=== PATIENT | male | born 1990 | race African-American/Black ===

== ENCOUNTER 2020-11-10 12:23 | Outpatient (CLI) | payer BC, SELFPAY ==
--- NOTE | ~2020-11-10 | MR_ITS ---
EXAMINATION: MR cervical spine wo con DATE: 11/10/2020 13:38 INDICATION: Neck pain. TECHNIQUE: Magnetic resonance imaging (MRI) of the cervical spine was performed without intravenous c ontrast. Sequences included sagittal T2-weighted FSE, sagittal STIR FSE, sagittal T1-weighted FSE, ax ial MERGE, and axial T2-weighted FSE. COMPARISON: Cervical spine radiograph 11/02/2020 FINDINGS: There is kyphosis of cervical spine. Vertebral body heights and intervertebral disc heights are normal. The spinal cord signal intensity is normal. The following disc levels are specifically d iscussed: C2-C3: The disc does not extend beyond the endplate margin. There is no uncovertebral joint osteoarth ritis. There is mild bilateral facet joint osteoarthritis. There is no neural foraminal stenosis. The re is no central canal stenosis. C3-C4: There is a left central protrusion. There is no uncovertebral joint osteoarthritis. There is n o facet joint osteoarthritis. There is no neural foraminal stenosis. There is mild central canal sten osis. C4-C5: There is a right central protrusion. There is no uncovertebral joint osteoarthritis. There is no facet joint osteoarthritis. There is no neural foraminal stenosis. There is mild central canal charley nosis with ventral indentation of the spinal cord. C5-C6: The disc is bulging. There is moderate right and mild left uncovertebral joint osteoarthritis. There is no facet joint osteoarthritis. There is moderate and mild left neural foraminal stenosis. T here is mild central canal stenosis with ventral indentation of the spinal cord. C6-C7: The disc is bulging. There is moderate right and mild left uncovertebral joint osteoarthritis. There is no facet joint osteoarthritis. There is moderate right and mild left neural foraminal steno sis. There is mild central canal stenosis with ventral indentation of the spinal cord. C7-T1: The disc does not extend beyond the endplate margin. There is no uncovertebral joint osteoarth ritis. There is mild bilateral facet joint osteoarthritis. There is mild right neural foraminal steno sis. There is no central canal stenosis. IMPRESSION: 1. Moderate cervical spondylosis. Reviewed, dictated and finalized at location A.
== END 2020-11-10 12:24 | disposition home or self-care (01) ==
PROVIDERS: Visit Provider Nurse Practitioner Family
DX: M47.23 Other spondylosis with radiculopathy, cervicothoracic region (principal); M48.03 Spinal stenosis, cervicothoracic region
CPT/HCPCS: 72141

== ENCOUNTER 2021-02-08 17:21 | Emergency (ER) | payer BC, SELFPAY ==
--- NOTE | ~2021-02-08 | XR_ITS ---
EXAMINATION: XR shoulder RT min 2V INDICATION: Paresthesia of the right arm TECHNIQUE: Four views of the right shoulder are submitted. COMPARISON: None FINDINGS: Normal alignment. No fracture. Glenohumeral and acromioclavicular joint spaces are normal. Soft tissues are unremarkable. IMPRESSION: 1. No acute osseous abnormality. Reviewed, dictated and finalized at location A.
[2021-02-08 17:30] VITALS: BP 151/103; PULSE 73; RESP 18; TEMP 37.1; O2SAT 99
--- NOTE | 2021-02-08 17:35 | ECG_ITS ---
Measurements Intervals [place] Rate: 67 P: 48 ID: [id number] QRS: -29 QRSD: 109 T: 23 QT: 374 QTc: 396 Interpretive Statements SINUS RHYTHM DELAYED PRECORDIAL R/S TRANSITION BORDERLINE ECG Electronically Signed On 02-08-2021 20:21:16 CDT by Armando Giraldo D.O.
[2021-02-08 19:23] VITALS: BP 153/116; PULSE 72; RESP 18; TEMP 36.8; O2SAT 100
--- NOTE | 2021-02-08 19:45 | ED.GENADULT ---
HPI - General Adult General Chief complaint: Extremity Injury, Upper Stated complaint: right shoulder pain Time Seen by Provider: 02/08/21 19:01 Source: patient and RN notes reviewed Mode of arrival: ambulatory Limitations: no limitations History of Present Illness HPI narrative: Patient is a 30-year-old male who presents to emergency department for evaluation of right shoulder pain that is been present since August he has seen orthopedics for this as well as primary care notes that he has had MRI of the shoulder and spine and is scheduled to see a new specialist in March on arrival he denies any new injury or trauma or other complaints pain is worse with activity and movement of the shoulder and isolated to the shoulder joint on the right side only Related Data Allergies Allergy/AdvReac Type Severity Reaction Status Date / Time No Known Allergies Allergy Verified 02/08/21 19:29 Review of Systems Review of Systems: All systems reviewed & are unremarkable except as noted in HPI and below PMFSH Past Medical History Medical History Cervical pain (neck) Cervical radiculopathy Chronic headaches Right arm pain Vision changes Family History Family History (Updated 11/02/20 @ 15:56 by Roxann Matamoros, RT(R)) Other Asthma Cerebrovascular accident Hypertension Social History Social History Smoking status: Never smoker Alcohol intake: never Substance use: current Substance use type: marijuana Gender identity (if verbalized by the patient): Male Exam Narrative: GENERAL: Well-appearing, well-nourished, and in no acute distress. HEAD: Normocephalic, atraumatic. EYES: PERRLA and EOMI. ENT: Nares clear, no rhinorrhea or epistaxis. Mucous membranes moist. NECK: Supple. No adenopathy or masses. CHEST: Clear to auscultation. No respiratory distress. No wheezes rales or rhonchi HEART: Regular rate and rhythm. No murmur heard. EXTREMITIES: Normal range of motion. No edema. Tenderness of the right shoulder joint no deformity. No midline cervical or thoracic tenderness SKIN: Warm, dry, no rash. NEURO: No focal deficits. Alert and oriented x3. Neurovascularly intact. Capillary refill less than 2 seconds PSYCH: Normal mood and affect. Course Course Emergency Course: Patient in the room nondistressed aware of case findings treatment plan and diagnosis agreeing to follow-up as instructed or to return if symptoms worsen or concerns Vital Signs Vital signs: Vital Signs Temperature 98.7 F 02/08/21 17:30 Pulse Rate 73 02/08/21 17:30 Respiratory Rate 18 02/08/21 17:30 Blood Pressure 151/103 H 02/08/21 17:30 Pulse Oximetry 99 02/08/21 17:30 Temperature 98.3 F 02/08/21 19:23 Pulse Rate 72 02/08/21 19:23 Respiratory Rate 18 02/08/21 19:23 Blood Pressure 153/116 H 02/08/21 19:23 Pulse Oximetry 100 02/08/21 19:23 Medical Decision Making MDM Narrative Medical decision making narrative: Patients injury or pain is consistent with musculoskeletal etiology. No signs of neurological or vascular compromise on exam. Compartments and tisues are soft without signs of compartment syndrome. Pain is felt appropriate for further evaluation on an outpatient basis. Vital Signs Vital Signs: Vital Signs Temperature 98.7 F 02/08/21 17:30 Pulse Rate 73 02/08/21 17:30 Respiratory Rate 18 02/08/21 17:30 Blood Pressure 151/103 H 02/08/21 17:30 Pulse Oximetry 99 02/08/21 17:30 Temperature 98.3 F 02/08/21 19:23 Pulse Rate 72 02/08/21 19:23 Respiratory Rate 18 02/08/21 19:23 Blood Pressure 153/116 H 02/08/21 19:23 Pulse Oximetry 100 02/08/21 19:23 Imaging Data Radiologist's impression: ITS Impressions Shoulder X-Ray 02/08/21 17:54 IMPRESSION: 1. No acute osseous abnormality. Discharge Plan Discharge Clinical Impress
[2021-02-08] MEDS: KETOROLAC (*BKC) 60 MG/2 ML VIAL IM (21:19)
[2021-02-08 21:45] VITALS: BP 167/116; PULSE 68; RESP 16; O2SAT 100
== END 2021-02-08 21:46 | disposition home or self-care (01) ==
PROVIDERS: Emergency Provider Emergency Medicine
DX: M25.511 Pain in right shoulder (principal); R94.31 Abnormal electrocardiogram [ECG] [EKG]
CPT/HCPCS: 73030; 93005; 96372; 99283; J1885

== ENCOUNTER 2022-02-07 16:57 | Emergency (ER) | payer BC, SELFPAY ==
--- NOTE | ~2022-02-07 | XR_ITS ---
EXAMINATION: XR chest 1V portable INDICATION: Shortness of breath and fever TECHNIQUE: Portable AP chest at 1721 hours COMPARISON: None available FINDINGS: The heart size is upper limits of normal for technique. There are minimal opacities of the mid and lower lung zones. No pleural effusion or pneumothorax. IMPRESSION: 1. Minimal opacities of the mid and lower lung zones, consistent with atelectasis versus pneumonia. Reviewed, dictated and finalized at location A. IMPRESSION: 1. Minimal opacities of the mid and lower lung zones, consistent with atelectas is versus pneumonia.
--- NOTE | 2022-02-07 17:01 | ECG_ITS ---
Measurements Intervals [place] Rate: 71 P: 61 SC: 182 QRS: -12 QRSD: 101 T: 21 QT: 396 QTc: 431 Interpretive Statements SINUS RHYTHM POSSIBLE LEFT ATRIAL ENLARGEMENT BORDERLINE R WAVE PROGRESSION, ANTERIOR LEADS BASELINE ARTIFACT- I, II, III, AVR, AVL, AVF, V1, V3-V4 BORDERLINE ECG COMPARED TO ECG 02/08/2021 17:41:22 NO SIGNIFICANT CHANGES Electronically Signed On 02-07-2022 21:49:34 CDT by Armando Giraldo D.O.
[2022-02-07 17:05] VITALS: BP 159/107; PULSE 98; RESP 15; TEMP 37.1; O2SAT 97
[2022-02-07 17:10] VITALS: PULSE 73
[2022-02-07 17:21] LABS: Basophils Percent Auto 0.4 % (0.2-1.2); Eosinophils Absolute Auto 0.1 K/mm3 (0-0.3); Eosinophils Percent Auto 1.2 % (0-4.4); Hematocrit 45.3 % (42.0-52.0); Hemoglobin 14.5 g/dL (14.0-18.0); Immature Granulocyte Absolute 0.02 K/mm3 (0.00-0.031); Immature Granulocyte Percent A 0.3 % (0-0.5); Lymphocytes Absolute Auto 2.18 K/mm3 (0.9-3.2); Mean Corpuscular Hemoglobin 28.5 pg (26-34); Mean Platelet Volume 10.8 fl (7.4-10.4); Monocytes Absolute Auto 0.5 K/mm3 (0.1-0.6); Monocytes Percent Auto 6.2 % (2.6-8.5); Neutrophils Percent Auto 63.9 % (45.5-73.1); Platelet Count Result 200 k/mm3 (150-375); Red Blood Count 5.09 M/mm3 (4.6-6.20); Red Cell Distribution Width 13.2 % (11.5-14.5); White Blood Count 7.8 K/mm3 (4.5-10.0)
[2022-02-07] MEDS: SODIUM CHLORIDE 0.9% IV 1,000 ML 999 ML IV CONT (17:33)
[2022-02-07] MEDS: KETOROLAC 30 MG/ML VIAL (*BKC) IV PUSH (17:33)
[2022-02-07 17:39] LABS: Alanine Aminotransferase 24 U/L (6-50); Albumin Level 4.1 g/dL (3.5-5.1); Alkaline Phosphatase 72 U/L (38-126); Anion Gap 6 mmol/L (8-16); Aspartate Amino Transferase 33 U/L (17-59); Bilirubin,Total 1.1 mg/dL (0.2-1.3); Blood Urea Nitrogen 16 mg/dL (9-20); Calcium 8.9 mg/dL (8.4-10.2); Carbon Dioxide 33 mmol/L (22-30); Chloride 101 mmol/L (98-107); Estimated CRCL calculation 99 ml/min; Estimated Glomerular Filt Rate > 60; Glucose 90 mg/dL (65-110); Potassium 3.2 mmol/L (3.4-5.0); Sodium 140 mmol/L (137-145)
[2022-02-07 17:59] LABS: Influenza A QL RT-PCR Negative (Negative); Influenza B QL RT-PCR Negative (Negative); SARS-CoV-2 RNA PCR Negative
--- NOTE | 2022-02-07 18:07 | ED.GENADULT ---
HPI - General Adult General Chief complaint: Shortness of Breath/Dyspnea Stated complaint: fever, nausea, body aches, SOB Time Seen by Provider: 02/07/22 17:09 History of Present Illness HPI narrative: Patient is a 31-year-old male who presents ER with concerns for illness. Reports he has been having some congestion with body aches. He reports low-grade fever and some nausea today. He also reports feeling dizzy when going from sitting to standing. No known sick contacts. No chest pain or chest pressure. Reports he feels dehydrated. Related Data Allergies Allergy/AdvReac Type Severity Reaction Status Date / Time No Known Allergies Allergy Verified 02/08/21 19:29 Review of Systems Review of Systems: All systems reviewed & are unremarkable except as noted in HPI and below Constitutional: Constitutional: Denies chills, Reports fatigue and Reports fever(s) ENT: Reports nasal congestion and Reports sore throat Cardiovascular: Cardiovascular: Denies chest pain, Denies rapid heart rate and Denies radiating jaw, neck or arm pain Respiratory: Respiratory: Denies cough, Reports dyspnea and Denies wheezing Gastrointestinal: Gastrointestinal: Denies abdominal pain, Denies nausea and Denies vomiting Musculoskeletal: Musculoskeletal: Reports myalgias, Denies arthralgias and Denies joint swelling PMFSH Past Medical History Medical History (Updated 02/07/22 @ 18:14 by Alfonso Bloom MD) Cervical pain (neck) Cervical radiculopathy Chronic headaches Right arm pain Vision changes Surgical History Surgical History (Updated 02/07/22 @ 18:09 by Alfonso Bloom MD) No pertinent past surgical history Family History Family History (Updated 11/02/20 @ 15:56 by Roxann Matamoros, RT(R)) Other Asthma Cerebrovascular accident Hypertension Social History Social History Smoking status: Never smoker Alcohol intake: never Substance use: current Substance use type: marijuana Gender identity (if verbalized by the patient): Male Exam Narrative: GENERAL: Well-appearing, well-nourished, and in no acute distress. HEAD: Normocephalic, atraumatic. ENT: Mucous membranes moist. Mild pharyngeal erythema with without tonsillar hypertrophy or exudate. Uvula midline nonedematous. Neck: Supple. CHEST: Clear to auscultation. No respiratory distress. HEART: Regular rate and rhythm. Normal peripheral pulses. EXTREMITIES: Normal range of motion. No edema. SKIN: Warm, dry, no rash. NEURO: Alert and oriented x3. PSYCH: Normal mood and affect. Course Course Emergency Course: Patient resting comfortably. Hydrated. Given Toradol. Informed of results. Feel patient has viral syndrome and recommend supportive care. Vital Signs Vital signs: Vital Signs Temperature 98.7 F 02/07/22 17:05 Pulse Rate 98 02/07/22 17:05 Respiratory Rate 15 02/07/22 17:05 Blood Pressure 159/107 H 02/07/22 17:05 Pulse Oximetry 97 02/07/22 17:05 Temperature 98.7 F 02/07/22 17:05 Pulse Rate 73 02/07/22 17:10 Respiratory Rate 15 02/07/22 17:05 Blood Pressure 159/107 H 02/07/22 17:05 Pulse Oximetry 97 02/07/22 17:05 Oxygen Delivery Room Air 02/07/22 17:10 Medical Decision Making Vital Signs Vital Signs: Vital Signs Temperature 98.7 F 02/07/22 17:05 Pulse Rate 98 02/07/22 17:05 Respiratory Rate 15 02/07/22 17:05 Blood Pressure 159/107 H 02/07/22 17:05 Pulse Oximetry 97 02/07/22 17:05 Temperature 98.7 F 02/07/22 17:05 Pulse Rate 73 02/07/22 17:10 Respiratory Rate 15 02/07/22 17:05 Blood Pressure 159/107 H 02/07/22 17:05 Pulse Oximetry 97 02/07/22 17:05 Oxygen Delivery Room Air 02/07/22 17:10 Lab Data Result diagrams: 02/07/22 17:14 02/07/22 17:14 Labs: Lab Results 02/07/22 02/07/22 02/07/22 Range/Units 17:14 17:14 17:14 WBC 7.8 (4.5-10.0) K
== END 2022-02-07 18:45 | disposition home or self-care (01) ==
PROVIDERS: Emergency Provider Emergency Medicine
DX: B34.9 Viral infection, unspecified (principal); Z20.822 Contact with and (suspected) exposure to COVID-19; R91.8 Other nonspecific abnormal finding of lung field; R94.31 Abnormal electrocardiogram [ECG] [EKG]
CPT/HCPCS: 36415; 71045; 80053; 85025; 87502; 93005; 96361; 96374; 99284; C9803; J1885; J7030; U0003; U0005

== ENCOUNTER 2022-04-16 21:25 | Emergency (ER) | payer BC, SELFPAY ==
--- NOTE | ~2022-04-16 | XR_ITS ---
EXAMINATION: XR chest 2V DATE: 04/16/2022 22:17 INDICATION: Dizziness, chills, body aches and weakness TECHNIQUE: frontal and lateral views of the chest were obtained. COMPARISON: Chest radiograph dated 02/07/22 FINDINGS: No focal pneumonia, edema or effusion. No acute osseous abnormality. The cardiomediastinal silhouette is normal. Visualized bones and soft tissues are unremarkable. Shallow inspiration. IMPRESSION: 1. No acute cardiopulmonary disease. Reviewed, dictated and finalized at location A. [employer]
[2022-04-16 21:27] VITALS: BP 160/110; PULSE 67; RESP 18; TEMP 36.4; O2SAT 100
--- NOTE | 2022-04-16 21:35 | ECG_ITS ---
Measurements Intervals [place] Rate: 61 P: 61 NE: 196 QRS: -22 QRSD: 105 T: 29 QT: 399 QTc: 403 Interpretive Statements SINUS RHYTHM WITH SINUS ARRHYTHMIA POSSIBLE LEFT ATRIAL ENLARGEMENT [-0.1mV P WAVE IN V1/V2] BORDERLINE LEFT AXIS DEVIATION [QRS AXIS < -20] COMPARED TO ECG 02/07/2022 17:10:11 SINUS ARRHYTHMIA NOW PRESENT Electronically Signed On 04-17-2022 11:16:34 RELAY TESTER by Naye De Los Santos M.D.
--- NOTE | 2022-04-16 21:58 | ED.URI ---
HPI - URI/Sore Throat General Chief Complaint: Upper Respiratory Infection Stated Complaint: dizziness Time Seen by Provider: 04/16/22 21:35 Source: patient Mode of arrival: ambulatory Limitations: no limitations History of Present Illness HPI Narrative: This is a 31-year-old male that presents to the emergency department due to feeling unwell over the last couple of days. Reports chills, body aches, lightheadedness, dry cough, nausea, dizziness. Reports his blood pressure has been a little elevated. Reports he has been taking his antihypertensive as prescribed. Denies fever, chest pain, shortness of breath, or abdominal pain. Related Data Allergies Allergy/AdvReac Type Severity Reaction Status Date / Time No Known Allergies Allergy Verified 04/16/22 21:30 Review of Systems Review of Systems: CONSTITUTIONAL: Reports chills. Denies fever EYES: Denies visual changes ENT: Reports rhinorrhea, congestion. Denies sore throat, or otalgia. CARDIOVASCULAR: Denies chest pain, or edema. RESPIRATORY: Reports cough. Denies dyspnea. GASTROINTESTINAL: Denies abdominal pain, nausea, vomiting NEUROLOGIC: Denies numbness, or weakness. All systems reviewed & are unremarkable except as noted in HPI and below PMFSH Past Medical History Medical History (Updated 04/17/22 @ 01:31 by MOLINA Alcantara-C) Cervical pain (neck) Cervical radiculopathy Chronic headaches Right arm pain Vision changes Surgical History Surgical History (Updated 02/07/22 @ 18:09 by Alfonso Bloom MD) No pertinent past surgical history Family History Family History (Updated 11/02/20 @ 15:56 by Roxann Matamoros, RT(R)) Other Asthma Cerebrovascular accident Hypertension Social History Social History Smoking status: Never smoker Alcohol intake: never Substance use: current Substance use type: marijuana Gender identity (if verbalized by the patient): Male Exam Narrative: GENERAL: Well-appearing, well-nourished, and in no acute distress. HEAD: Normocephalic, atraumatic. EYES: PERRLA and EOMI. ENT: Nares clear, no rhinorrhea or epistaxis. Mucous membranes moist. Oropharynx without tonsillar hypertrophy exudate or other lesions. Bilateral TMs pearly aragon non-bulging NECK: Supple. No adenopathy or masses. CHEST: Clear to auscultation. No respiratory distress. No wheezes rales or rhonchi HEART: Regular rate and rhythm. No murmur heard. Normal peripheral pulses. EXTREMITIES: Normal range of motion. No edema. SKIN: Warm, dry, no rash. NEURO: No focal deficits. Alert and oriented x3. Cranial nerves II through XII grossly intact PSYCH: Normal mood and affect Course Vital Signs Vital signs: Vital Signs Temperature 97.6 F 04/16/22 21: Pulse Rate 67 04/16/22 21: Respiratory Rate 18 04/16/22 21:27 Blood Pressure 160/110 H 04/16/22 21: Pulse Oximetry 100 04/16/22 21:27 Oxygen Delivery Room Air 04/16/22 21:27 Temperature 97.6 F 04/16/22 21:27 Pulse Rate 67 04/16/22 21:27 Respiratory Rate 18 04/16/22 21:27 Blood Pressure 160/110 H 04/16/22 21:27 Pulse Oximetry 100 04/16/22 21:27 Oxygen Delivery Room Air 04/16/22 21:27 MDM - URI/Sore Throat MDM Narrative Medical decision making narrative: Patient presents to the emergency department for lightheadedness, chills, and body aches ongoing over the last couple of days. He is afebrile and nontoxic-appearing. He has been hypertensive in the ED. He does have known history of hypertension. Reports he has been taking his blood pressure medication as prescribed. CBC and metabolic panel without concerning findings. Influenza, COVID, and RSV screens are negative. Chest x-ray without acute cardiopulmonary abnormality. EKG without concerning changes. Patient was updated on case findings. His blood pressure did remain elevated. Spoke with patient about giving him a dose of an IV antih
[2022-04-16 22:08] LABS: Basophils Percent Auto 0.4 % (0.2-1.2); Eosinophils Percent Auto 0.4 % (0-4.4); Hematocrit 46.3 % (42.0-52.0); Hemoglobin 15.2 g/dL (14.0-18.0); Immature Granulocyte Absolute 0.04 K/mm3 (0.00-0.031); Immature Granulocyte Percent A 0.4 % (0-0.5); Lymphocytes Absolute Auto 2.96 K/mm3 (0.9-3.2); Mean Corpuscular HGB Conc 32.8 g/dl (32-36); Mean Corpuscular Volume 88.4 fl (80-100); Mean Platelet Volume 10.9 fl (7.4-10.4); Monocytes Absolute Auto 0.8 K/mm3 (0.1-0.6); Monocytes Percent Auto 8.2 % (2.6-8.5); Neutrophils Absolute Auto 5.4 K/mm3 (1.3-6.7); Neutrophils Percent Auto 58.6 % (45.5-73.1); Platelet Count Result 202 k/mm3 (150-375); Red Blood Count 5.24 M/mm3 (4.6-6.20); Red Cell Distribution Width 13.8 % (11.5-14.5); White Blood Count 9.3 K/mm3 (4.5-10.0)
[2022-04-16] MEDS: ONDANSETRON INJ 4 MG/2 ML VIAL IV PUSH (22:23)
[2022-04-16] MEDS: MECLIZINE HCL 25 MG TABLET PO (22:23)
[2022-04-16] MEDS: SODIUM CHLORIDE 0.9% IV 1,000 ML 999 ML IV CONT (22:23)
[2022-04-16 22:44] LABS: Influenza A QL RT-PCR Negative (Negative); Influenza B QL RT-PCR Negative (Negative); RSV RNA, RT-PCR Negative (Negative); SARS-CoV-2 RNA PCR Negative
--- NOTE | 2022-04-17 00:31 | PC.NURSE ---
Unable to obtain a green top due to the first being hemolyzed. This RN, and two electronics technology department chair and another RN attempted without success. Phlebetomy called to redraw.
[2022-04-17 01:18] LABS: Anion Gap 7 mmol/L (8-16); Blood Urea Nitrogen 15 mg/dL (9-20); Calcium 8.4 mg/dL (8.4-10.2); Carbon Dioxide 26 mmol/L (22-30); Chloride 105 mmol/L (98-107); Estimated CRCL calculation 99 ml/min; Estimated Glomerular Filt Rate > 60; Glucose 82 mg/dL (65-110); Potassium 3.4 mmol/L (3.4-5.0); Sodium 138 mmol/L (137-145)
[2022-04-17 01:51] VITALS: BP 172/115; PULSE 72; RESP 20; O2SAT 96
== END 2022-04-17 01:53 | disposition home or self-care (01) ==
PROVIDERS: Emergency Provider Physician Assistant
DX: B34.9 Viral infection, unspecified (principal); R42 Dizziness and giddiness; Z20.822 Contact with and (suspected) exposure to COVID-19; R94.31 Abnormal electrocardiogram [ECG] [EKG]
CPT/HCPCS: 36415; 71046; 80048; 85025; 87637; 93005; 96361; 96374; 99284; A9270; J2405; J7030

== ENCOUNTER 2022-09-19 20:12 | Emergency (ER) | payer BC, SELFPAY ==
[2022-09-19 20:24] VITALS: PULSE 78; RESP 16; TEMP 36.7; O2SAT 98
--- NOTE | 2022-09-19 20:34 | ED.GENADULT ---
HPI - General Adult General Chief complaint: Unspecified Stated complaint: sciatic pain- B feet pins/needles; sore throat Time Seen by Provider: 09/19/22 20:19 History of Present Illness HPI narrative: Patient is a 32-year-old male here for evaluation of sore throat x4 days. Patient states he has had some discomfort with swallowing in the right side of his throat but he has been tolerating his secretions. He denies any fevers, chills, nausea or vomiting. Today he states he felt a pop in the back of his throat which prompted his ED evaluation. He is still tolerating his secretions. Additionally, patient states he has had [id number] sensation in his bilateral soles of the feet x2 and half months. He thought this may be due to sciatica but he denies any back pain or hip pain. No numbness or tingling in the groin, incontinence or retention of bowel or bladder. Sensation comes and goes, seems to be worse when he wears tight shoes. Related Data Allergies Allergy/AdvReac Type Severity Reaction Status Date / Time No Known Allergies Allergy Verified 04/16/22 21:30 Review of Systems Review of Systems: Gen.: Denies fevers or chills Eyes: Denies eye pain or visual change ENT: Reports sore throat Respiratory: Denies shortness of breath or cough CV: Denies chest pain or palpitations GI: Denies abdominal pain nausea, emesis or diarrhea denies burning, urgency, frequency or hematuria Musculoskeletal: Reports tingling in the soles of the feet Neuro: Denies numbness, tingling, weakness or focal weakness Skin: Denies rash Except as documented, all other systems reviewed and negative [facility] Past Medical History Medical History Cervical pain (neck) Cervical radiculopathy Chronic headaches Right arm pain Vision changes Surgical History Surgical History No pertinent past surgical history Family History Family History (Updated 11/02/20 @ 15:56 by Roxann Matamoros, RT(R)) Other Asthma Cerebrovascular accident Hypertension Social History Social History Smoking status: Never smoker Alcohol intake: never Substance use: current Substance use type: marijuana Gender identity (if verbalized by the patient): Male Exam Narrative: Gen: Alert, oriented, no acute distress Eyes: EOMI, no icterus Pulm: Respirations even and unlabored, symmetric thorax expansion, no audible stridor or visible cyanosis ENT: there are two ulcerations to the uvula. tonsils are 1+ bilaterally, no exudates. neck: no lymphadenopathy. FROM in neck without pain. CV: 2+ dp/pt pulses bilaterally. GI: No distension, no voluntary/involuntary guarding Neuro: 5/5 strength in BLE. Sensation intact to feet. AOx4, moves all extremities without apparent difficulty or weakness, follows commands Skin: No jaundice, no visible bruising, rashes, lesions or wounds on exposed skin Psych: Normal mood/affect, insight/judgement good, adequate fund of knowledge, recent/remote memory intact Course Vital Signs Vital signs: Vital Signs Temperature 98.0 F 09/19/22 20:24 Pulse Rate 78 09/19/22 20:24 Respiratory Rate 16 09/19/22 20:24 Pulse Oximetry 98 09/19/22 20:24 Oxygen Delivery Room Air 09/19/22 20:24 Temperature 98.0 F 09/19/22 20:24 Pulse Rate 78 09/19/22 20:24 Respiratory Rate 16 09/19/22 20:24 Pulse Oximetry 98 09/19/22 20:24 Oxygen Delivery Room Air 09/19/22 20:24 Medical Decision Making [facility] Narrative Medical decision making narrative: 32 year old male here due to sore throat x 5 days and pins and needles sensation intermittently in the soles of his feet x several months. He has two small apthous ulcers on his uvula which may explain his pain. Strep test is negative. He was given toradol and decadron with impro
[2022-09-19 21:07] LABS: Glucose Point of Care 110 mg/dl (65-105)
[2022-09-20 11:14] LABS: Strep Group A RT-PCR NOT DETECTED (Negative)
== END 2022-09-19 21:30 | disposition home or self-care (01) ==
LOC: ANHED 21:05
PROVIDERS: Emergency Provider Physician Assistant
DX: K12.0 Recurrent oral aphthae (principal); R20.2 Paresthesia of skin
CPT/HCPCS: 82948; 87651; 99283

== ENCOUNTER 2023-01-20 21:34 | Emergency (ER) | payer BC, SELFPAY ==
[2023-01-20 21:36] VITALS: BP 156/100; PULSE 77; RESP 20; TEMP 36.8; O2SAT 100
[2023-01-20] MEDS: IBUPROFEN 600 MG TABLET PO (22:39)
[2023-01-20] MEDS: CYCLOBENZAPRINE HCL 10 MG TABLET PO (22:39)
[2023-01-20] MEDS: LIDOCAINE 5% PATCH 1 PATCH TRANSDERM (22:40)
[2023-01-20 22:52] LABS: Basophils Percent Auto 0.2 % (0.2-1.2); Hematocrit 47.6 % (42.0-52.0); Hemoglobin 15.3 g/dL (14.0-18.0); Immature Granulocyte Absolute 0.05 K/mm3 (0.00-0.031); Immature Granulocyte Percent A 0.4 % (0-0.5); Lymphocytes Absolute Auto 3.03 K/mm3 (0.9-3.2); Lymphocytes Percent Auto 22.7 % (18.3-44.2); Mean Corpuscular HGB Conc 32.1 g/dl (32-36); Mean Corpuscular Hemoglobin 28.1 pg (26-34); Mean Corpuscular Volume 87.5 fl (80-100); Mean Platelet Volume 10.9 fl (7.4-10.4); Monocytes Absolute Auto 0.8 K/mm3 (0.1-0.6); Monocytes Percent Auto 5.9 % (2.6-8.5); Neutrophils Absolute Auto 9.4 K/mm3 (1.3-6.7); Neutrophils Percent Auto 70.8 % (45.5-73.1); Platelet Count Result 189 k/mm3 (150-375); Red Blood Count 5.44 M/mm3 (4.6-6.20); Red Cell Distribution Width 13.3 % (11.5-14.5); White Blood Count 13.3 K/mm3 (4.5-10.0)
--- NOTE | 2023-01-20 22:52 | ED.BACK ---
HPI - Back Pain/Injury General Chief Complaint: Back Pain/Injury Stated Complaint: fever, low back pain Time Seen by Provider: 01/20/23 21:44 History of Present Illness HPI Narrative: Does have patient presents the emergency department with persistent low back pain. He is concerned that he has some type of infection. He was seen at an outside ER and given steroids and Toradol. States they are not helping his symptoms. Today he feels like he has a fever although at home temperature is normal. Patient denies other symptoms including dysuria Related Data Allergies Allergy/AdvReac Type Severity Reaction Status Date / Time No Known Allergies Allergy Verified 01/20/23 21:35 Review of Systems Review of Systems: Review of systems negative except what is documented in [facility] Past Medical History Medical History Cervical pain (neck) Cervical radiculopathy Chronic headaches Right arm pain Vision changes Surgical History Surgical History No pertinent past surgical history Family History Family History (Updated 11/02/20 @ 15:56 by Roxann Matamoros, RT(R)) Other Asthma Cerebrovascular accident Hypertension Social History Social History Smoking status: Never smoker Alcohol intake: never Substance use: current Substance use type: marijuana Gender identity (if verbalized by the patient): Male Exam Narrative: GENERAL: Well-appearing, well-nourished, and in no acute distress. HEAD: Normocephalic, atraumatic. EYES: PERRLA and EOMI. ENT: Nares clear, no rhinorrhea or epistaxis. Mucous membranes moist. NECK: Supple. CHEST: Clear to auscultation. No respiratory distress. HEART: Regular rate and rhythm. ABDOMEN: Soft, nontender, nondistended. EXTREMITIES: Normal range of motion. No edema. SKIN: Warm, dry, no rash. NEURO: No focal deficits. Alert and oriented x3. PSYCH: Normal mood and affect. Back exam is unremarkable. No vertebral tenderness, no musculoskeletal tenderness, no signs of infection Course Vital Signs Vital signs: Vital Signs Temperature 36.8 C 01/20/23 21:36 Pulse Rate 77 01/20/23 21:36 Respiratory Rate 20 01/20/23 21:36 Blood Pressure 156/100 H 01/20/23 21:36 Pulse Oximetry 100 01/20/23 21:36 Oxygen Delivery Room Air 01/20/23 21:36 Temperature 36.8 C 01/20/23 21:36 Pulse Rate 77 01/20/23 21:36 Respiratory Rate 20 01/20/23 21:36 Blood Pressure 156/100 H 01/20/23 21:36 Pulse Oximetry 100 01/20/23 21:36 Oxygen Delivery Room Air 01/20/23 21:36 MDM - Back Pain/Injury MDM Narrative Medical decision making narrative: CBC CMP and urine ordered and all unremarkable. Negative for infection. Slight increase in white blood cell count secondary to recent prednisone prescription. Patient is feeling better after the initial medications. States he has a residual mild headache. We will add Tylenol at discharge. Patient reassured. He had initial concerns for infection. Advised to continue home medications and drink plenty of fluids. Shared decision making with patient regarding plan for outpatient follow-up and medication use at home. Also discussed stopping prednisone Lab Data 01/20/23 22:43 01/20/23 22:43 Labs: Lab Results 01/20/23 01/20/23 Range/Units 22:43 22:51 WBC 13.3 H (4.5-10.0) K/mm3 RBC 5.44 (4.6-6.20) M/mm3 Hgb 15.3 (14.0-18.0) g/dL Hct 47.6 (42.0-52.0) % MCV 87.5 (80-100) fl MCH 28.1 (26-34) pg MCHC 32.1 (32-36) g/dl RDW 13.3 (11.5-14.5) % Plt Count 189 (150-375) k/mm3 MPV 10.9 H (7.4-10.4) fl Immature Gran % (Auto) 0.4 (0-0.5) % Neut % (Auto) 70.8 (45.5-73.1) % Lymph % (Auto) 22.7 (18.3-44.2) % Tift % (Auto) 5.9 (2.6-8.5) % Eos % (
[2023-01-20 23:01] LABS: Appearance Urine Clear (Clear); Bacteria Urine None Seen /hpf; Bilirubin Urine 1+ (Negative); Blood Urine Negative (Negative); Color Urine Dark Yellow (Yellow); Glucose Urine UA Negative (Negative); Ketones Urine Trace mg/dL (Negative); Leukocyte Esterase Ur Negative LEU/UL (Negative); Nitrate Urine Negative (Negative); Non Pathogenic Casts 0-2; Protein Urine Trace mg/dL (Negative); RBC Urine 0-2 /hpf (0-2); Specific Grav Ur 1.029 (1.001-1.035); Squamous Epithelial Cell Urine None seen /hpf (Few); WBC Urine 0-5 /hpf
[2023-01-20 23:09] LABS: Alanine Aminotransferase 28 U/L (6-50); Albumin Level 4.3 g/dL (3.5-5.1); Alkaline Phosphatase 71 U/L (38-126); Anion Gap 1 mmol/L (8-16); Aspartate Amino Transferase 35 U/L (17-59); Bilirubin,Total 1.1 mg/dL (0.2-1.3); Blood Urea Nitrogen 11 mg/dL (9-20); CRP < 0.5 mg/dL (<1.0); Carbon Dioxide 33 mmol/L (22-30); Chloride 103 mmol/L (98-107); Estimated CRCL calculation 108 ml/min; Estimated Glomerular Filt Rate > 60; Glucose 91 mg/dL (65-110); Potassium 3.8 mmol/L (3.4-5.0); Sodium 137 mmol/L (137-145)
[2023-01-20 23:37] LABS: Erythrocyte Sedimentation Rate 3 mm/hr (0-20)
[2023-01-20 23:38] LABS: Add Urine Microscopic? YES
== END 2023-01-21 00:47 | disposition home or self-care (01) ==
PROVIDERS: Emergency Provider Emergency Medicine
DX: S39.012A Strain of muscle, fascia and tendon of lower back, initial encounter (principal); X58.XXXA Exposure to other specified factors, initial encounter
CPT/HCPCS: 36415; 80053; 81001; 85025; 85652; 86140; 99283; A9270